=== PATIENT | male | born 1985 | race Caucasian/White ===

== ENCOUNTER 2019-03-04 13:52 | Emergency (ER) | payer OTHER ==
[~2019-03-04] VITALS: Ht 175.3 cm; Wt 77.1 kg
[2019-03-04 14:07] VITALS: BP 121/79
[2019-03-04 14:21] VITALS: BP_SYST 120; BP_SYST 121; BP_DIAS 79
--- NOTE | 2019-03-04 14:54 | ER.PDOC ---
General Chief Complaint: Extremities Stated Complaint: INJURED LEFT ARM/WRIST Time seen by MD: 14:47 Source: patient Exam Limitations: no limitations History of Present Illness Initial Comments He started a new job 3 days ago and now he is having pain in his left forearm. He is smoothing out ashphalt all day and the next day he started having pain in the left forearm. He has taken IBP once or twice since it started wihtout much relief. Past Medical History Medical History: no pertinent history Surgical History: no surgical history Family History Significant Family History: diabetes Social History Smoking: greater than 1 pack/day Alcohol Use: occassionally Drug Use: other Review of Systems Musculoskeletal: muscle pain, muscle stiffness Skin: lesions, rash All Other Systems: Reviewed and Negative Physical Exam General Appearance: Alert Hand: nml inspection, non-tender Wrist: tenderness Forearm/Elbow: tenderness (about the left radial mid-forearm), swelling Arm/Shoulder: nml inspection, non-tender Neuro/Vasc/Tendon: sensation nml, motor nml, motor deficit (positive wrist flick) Skin: warm/dry Head/ENT: nml inspection Respiratory: chest non-tender, breath sounds nml CVS: heart sounds normal Results/Orders Results/Orders Orders - ALEX SLADE [employer] JACK Xr Forearm Lt (03/04/19 14:59) Vital Signs Date Time Temp Pulse Resp B/P (MAP) Pulse Ox O2 Delivery O2 Flow Rate FiO2 03/04/19 14:21 97.0 89 16 121/79 (93) 98 03/04/19 14:21 97.0 89 18 03/04/19 14:07 97.0 89 16 98 03/04/19 14:07 97.0 89 16 121/79 (93) 98 Departure Time of Disposition: 16:53 Disposition: 01 HOME, SELF-CARE Impression: Primary Impression: Tendonitis Additional Impressions: Forearm tendonitis Tendinitis of left forearm Condition: Stable Patient Instructions: Tendinitis Referrals: PCP,UNKNOWN (PCP) PRIMARY CARE PROVIDER Additional Instructions: RICE, wear brace at all times for 5 days, if worse to no better follow up with ORTHO, if severe return to the ER. Scripts Indomethacin (INDOMETHACIN) 50 Mg Capsule 1 CAP PO TID for tendonitis for 10 Days, #30 CAP 0 Refills with food Prov: ALEX SLADE [employer] JACK 1/6/20 Duration or Time Spent with Pa: 35 Return to Work/School Can a patient return to work?: Yes (wearing brace) Can a patient return to school: Yes Problem Qualifiers ALEX SLADE NP Mar 04, 2019 14:54
--- NOTE | 2019-03-04 15:56 | DIREP ---
PROCEDURE:XRAY FOREARM 2 VWS-LT COMPARISON:None. INDICATIONS:left forearm FINDINGS: BONES:Normal. JOINTS:Normal. SOFT TISSUES:Normal. OTHER:No additional findings. CONCLUSION:Normal examination. Dictated by: Jatinder Walker M.D. on 03/04/2019 at 03:54 PM
[2019-03-04] MEDS ORDERED: INDO50CA15 PO (16:52)
[2019-03-04 17:10] VITALS: BP 120/80
== END 2019-03-04 17:06 | disposition home or self-care (01) ==
LOC: ER 13:52
DX: M77.9 Enthesopathy, unspecified (principal); F17.210 Nicotine dependence, cigarettes, uncomplicated; Z83.3 Family history of diabetes mellitus
CPT/HCPCS: 99284; 73090-LT